=== PATIENT | male | born 1980 | race Caucasian/White ===

== ENCOUNTER 2020-07-13 05:19 | Emergency (ER) | payer SELFPAY ==
--- NOTE | 2020-07-13 05:30 | PC.NURSE ---
FAMILY MEMBER COMING TO REGISTRATION DESK AT SIGN IN STATING THAT THE PATIENT NEEDS TO SIT IN THE CAR TO RECLINE AND BE MORE COMFORTABLE. INFORMING PATIENT AND FAMILY THAT WAITING IN THE CAR WAS NOT POSSIBLE IN CASE SOMETHING HAPPENED TO THE PATIENT HE NEEDED TO BE ABLE TO BE VISUALIZED BY STAFF FOR PATIENTS WELL BEING SEEING HE WAS AN ER PATIENT. FAMILY MEMBER STATING THAT WAS UNACCEPTABLE. FAMILY MEMBER THEN CALLING THE NURSING INSURANCE CLAIMS CLERK, TELLING OTHER STAFF SO THAT NURSE DOES HER JOB . ASKING FOR A RECLINER IN THE WAITING ROOM. PATIENT AND FAMILY MEMBER BROUGHT TO A STRETCHER FOR PATIENT COMFORT. FAMILY MEMBER STATING THAT THEY ARE A FORMER EMPLOYEE OF THE [employer]. STATING THAT THIS ER CHARGE NURSE WAS THE REASON SHE LEFT THE HOSPITAL. THIS CHARGE NURSE NOT HAVING CONTACT WITH THIS FAMILY MEMBER BEFORE, NOT RECOGNIZING THEM.
--- NOTE | 2020-07-13 06:54 | PC.NURSE ---
PATIENT AND FAMILY MEMBER LEAVING FROM BED WITHOUT TREATMENT. NOT WANTING TO STAY FOR FURTHER CARE. PROVIDER MADE AWARE. SEEN WALKING OUT BY ENVIRONMENTAL AND REGISTRATION.
== END 2020-07-13 06:55 | disposition left against medical advice (07) ==
LOC: HO.ED 07:06
PROVIDERS: Emergency Provider Emergency Medicine
DX: M54.9 Dorsalgia, unspecified (principal)

== ENCOUNTER 2024-07-25 10:12 | Emergency (ER) | payer SELFPAY ==
--- NOTE | ~2024-07-25 | CT_ITS ---
EXAMINATION: CT ANGIOGRAM CHEST CLINICAL INFORMATION: Pleuritic chest pain, shortness of breath, left-sided pain, #fracture. COMPARISON: No prior CT. Chest x-ray dated earlier same day TECHNIQUE: Multiple axial images were obtained through the chest after the administration of 50 mL of Omnipaque 350 intravenous contrast. Extensive vascular post-processing including two-dimensional and three-dimensional reformatted images were created and reviewed on an independent workstation. This CT examination was performed using dose optimization techniques as appropriate, variously including the following: *Automated exposure control *Adjustment of mA and/or kV according to patient size (this includes techniques or standardized protocols for targeted exams where dose is matched to indication/reason for exam; i.e. extremities or head) *Use of iterative reconstruction technique FINDINGS: VASCULAR: There is no evidence of pulmonary embolus. Main pulmonary artery is normal in size. There is no evidence of acute aortic syndrome or aneurysm. The aorta is normal in appearance. The heart size is normal. There is no pericardial effusion. No evidence of right heart strain. No reflux of contrast into the IVC. LUNGS: Minimal changes of centrilobular emphysema. No consolidations or abnormal groundglass opacities. There is minimal linear atelectasis in the left lower lobe medially. There is mild thickening of the small airways suggesting mild chronic bronchitis. There is no abnormal or suspicious pulmonary nodule. MEDIASTINUM: Normal thyroid. No adenopathy. Central airways normal. Esophagus normal. CHEST WALL: Normal. IMAGED UPPER ABDOMEN: Normal. OSSEOUS STRUCTURES: Normal. No definite rib fractures seen. CT/CT angio chest PE protocol IMPRESSION: 1. No evidence of bony embolus. No evidence of acute aortic syndrome. 2. The lungs are clear. 3. Mild thickening of the small airways suggesting bronchitis. 4. No definite acute osseous abnormality or rib fracture seen. Electronically signed by: Jean Arredondo MD 07/25/2024 02:52 PM EDT
--- NOTE | ~2024-07-25 | XR_ITS ---
EXAMINATION: XR CHEST 1 VIEW HISTORY: CP COMPARISON: There are no prior studies for comparison. FINDINGS: A single PA portable view of the chest is submitted. The lungs are expanded and clear. There is no pleural effusion, pneumothorax, or pulmonary vascular congestion. The heart is normal in size. The bones are intact. XR/XR chest 1V IMPRESSION: Clear lungs. Electronically signed by: Blake Thurman MD 07/25/2024 11:05 AM EDT
--- NOTE | 2024-07-25 10:13 | ECG_ITS ---
Test Reason : chest pain Blood Pressure : */* mmHG Vent. Rate : 73 BPM Atrial Rate : 73 BPM P-R Int : 96 ms QRS Dur : 98 ms QT Int : 350 ms P-R-T Axes : 25 57 39 degrees QTcB Int : 385 ms Sinus rhythm with short [place] Minimal voltage criteria for LVH, may be normal variant ( Sokolow-Butler ) Borderline ECG No previous ECGs available Referred By: Generic ED Physician Electronically Signed By: MARJORIE NATH MD
[2024-07-25 10:25] VITALS: BP 119/74; PULSE 86; RESP 16; TEMP 36.9; O2SAT 96; BMI 23.8
[2024-07-25 10:49] LABS: MANUAL DIFF FLAG NO
[2024-07-25 10:52] LABS: Basophils Absolute Auto 0.1 X10*3/uL (0.0-0.2); Basophils Percent Auto 0.8 % (0-2); Eosinophils Absolute Auto 0.3 X10*3/uL (0.0-0.4); Eosinophils Percent Auto 3.7 % (0-4); Hematocrit 48.1 % (42.0-52.0); Hemoglobin 16.5 g/dl (14.0-18.0); Imm Gran Abs Auto 0.05 X10*3/uL (0.00-0.03); Imm Gran Pct Auto 0.5 % (0.0-0.4); Lymphocytes Absolute Auto 1.8 X10*3/uL (1.2-4.9); Mean Corpuscular HGB Conc 34.3 g/dl (31.0-36.0); Mean Corpuscular Hemoglobin 32.4 pg (27.0-33.0); Mean Corpuscular Volume 94.3 fL (80.0-98.0); Mean Platelet Volume 9.6 fL (9.4-12.4); Monocytes Percent Auto 11.1 % (2-11); Neutrophils Absolute Auto 5.9 x10*3/uL (2.0-8.3); Neutrophils Percent Auto 63.9 % (45-73); Platelet Count 225 X10*3/uL (160-400); White Blood Count 9.2 X10*3/uL (4.8-10.8)
--- NOTE | 2024-07-25 11:07 | ED_ITS ---
HPI - Chest Pain General Chief Complaint: Chest Pain Stated Complaint: chest pain Time Seen by Provider: 07/25/24 10:49 Source: patient, RN notes reviewed and old records reviewed Mode of arrival: ambulatory Limitations: no limitations History of Present Illness ED Provider: China Cosme PA-C HPI narrative: 43-year-old male with PMHx IVDU with heroin (remission since 2019), Lyme disease, chronic lower back pain, neuropathy presenting to the ED c/o left-sided chest pain x4 days s/p excessive alcohol, LSD, mushroom, cocaine use Monday night into Monday. Reports drugs were from trusted source , and thinks his symptoms are attributed to overdoing it . He describes the chest pain as non- radiating, sharp, constant, worse with inspiration and lying down, better with sitting down and leaning forward. Also reports cough/congestion, SOB at rest, with speaking / exertion, & bilateral LE swelling x2 days. 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 Denies recent trauma/falls. Reports cigarette smoking, subjective fever/chills last night. Denies headache, LOC/lightheadedness, abdominal pain, N/V/D, dysuria/hematuria, new numbness/tingling, new wounds/rashes. MD complaint: chest pain Onset (ago): day(s) Timing of current episode: constant Onset: during rest and during exertion Pain location: left chest Pain radiation: none Exacerbating factors: exertion, inspiration and supine Associated symptoms: fever and cough Related Data Allergies Allergy/AdvReac Type Severity Reaction Status Date / Time No Known Allergies Allergy Verified 07/25/24 10:25 Review of Systems 2 Review of Systems: Yes all other systems are reviewed and are negative Constitutional: Constitutional: Reports as per HPI [facility] Past Medical History Attestation statement: The following information was validated with the patient. Source: old records reviewed Social History Social History Advance Directives: No Advance Directives Information Provided: Yes Physical Exam 2 Vital Signs: Vital Signs: Last Vital Signs Temp 97.5 F 07/25/24 14:20 Pulse 68 07/25/24 14:20 Resp 14 07/25/24 14:20 BP 132/86 07/25/24 14:20 Pulse Ox 99 07/25/24 14:20 O2 Del Method Room Air 07/25/24 14:20 BMI result Body Mass Index 23.8 Const: General: cooperative, healthy appearing and no acute distress O rientation/consciousness: patient oriented x3 Limitations: no limitations HEENT: Head: Yes normal to inspection and Yes atraumatic Ears: hearing grossly normal bilaterally General nose exam: Normal external nose present Face and sinus: Yes normal facial exam Mouth: Normal oral and palatal mucosa present, oropharynx normal and moist mucous membranes Throat: Yes posterior oropharynx normal and Yes uvula midline Eyes: General: appearance normal, both eyes and all related structures EOM: EOMs intact bilaterally Neck: Neck: Yes normal visual inspection and Yes no meningeal signs Chest: Other: Healing small bruise noted to L anterior chest wall below nipple Mild ttp over L chest, no erythema/wounds/rashes or crepitus Chest palpation & inspection: normal inspection of the chest, no crepitus, tenderness and No rash Resp: Effort & Inspection: normal respiratory effort, able to speak in complete sentences, Actively coughing Quality: dry, no respiratory distress and symmetric chest movement Auscultation: clear to auscultation bilaterally, no rales, no rhonchi and no wheezes Cardio: Other: No pericardial friction rub or muffled heart sounds noted Rate: regular rate Heart sounds: S1 normal heart sound present and S2 normal heart sound present GI: Inspection: Yes normal to inspection Palpation (GI): Soft to palpation, nontender, no guarding and not rigid Skin: Other: Few small old wounds noted to b/l LE. Rashes: no rashes Wounds: no wounds Neuro: General: patient oriented x3, tone normal and no meningeal signs C ranial nerves: Yes CN's II-XII intact bilaterally Gait exam (Neuro): Normal gait present Extrem: General: Yes normal to inspection, Yes no calf tenderness, Yes normal gait and No pedal edema Course Course Course Narrative: - bedside cardiac ultrasound without appreciable effusion, LV dysfunction or RV strain -1421-- labs reassuring, d-dimer WNL, PE unlikely -AST/ALT mildly elevated > No priors to compare. Troponin negative. - tox screen positive for fentanyl, cocaine, THC XR chest 1V IMPRESSION: Clear lungs. > due to patient's continued symptoms, and difficulty lying flat will obtain CT for further eval. Patient states he needs to be discharged by 1500 to go to work. Agreeable to stay for scan however will likely leave prior to results >1453-- patient will sign out now AMA prior to CTA results and SARs results. He is A&O x3, competent to make his own decisions. I will follow up these results. 1500--CT angio chest PE protocol IMPRESSION: 1. No evidence of bony embolus. No evidence of acute aortic syndrome. 2. The lungs are clear. 3. Mild thickening of the small airways suggesting bronchitis. 4. No definite acute osseous abnormality or rib fracture seen. Medications Administered Discontinued Medications Generic Name Dose Route Start Last Admin Trade Name Freq PRN Reason Stop Dose Admin Iohexol 100 ml 07/25/24 14:36 07/25/24 14:36 Iohexol 350 Mg/Ml 100 Ml Infus..Btl IV 07/25/24 14:37 65 ml ONCE ONE Administration Ketorolac Tromethamine 30 mg 07/25/24 11:33 07/25/24 13:33 Ketorolac Tromethamine 30 Mg/Ml Vial IM 07/25/24 11:34 Not Given ONCE ONE Medical Decision Making Medical Decision Making [facility] Narrative: 43-year-old male with PMHx IVDU with heroin (remission since 2019), Lyme disease, chronic lower back pain, neuropathy presenting to the ED c/o left-sided chest pain x4 days s/p excessive alcohol, LSD, mushroom, cocaine use Monday night into Monday. On exam VSS, NAD, nontoxic appearing, PE with mild ttp over L chest wall. Lungs CTA. RRR. No pedal edema. Concern for ACS/unstable angina vs pericarditis vs ?myocarditis vs pericardial effusion vs MSK pain vs rib fracture/contusion vs PE. Lower suspicion for metabolic/electrolyte abnormality, pneumonia. Low suspicion for aortic dissection, pneumothroax, rhabdomyolysis, acute intoxication/withdrawal. Plan: labs, EKG, x-ray, CUTLER, POC cardiac U/S, SARs, reassess Differential Diagnosis Differential Diagnoses: The differential diagnosis associated with the presentation includes As above Admission/Observation Consideration of admission/observation: Escalation of care including admission/observation considered Lab Data [facility] Lab Attestation statement: I reviewed the patient's lab results. 07/25/24 10:39 07/25/24 10:39 Labs: Lab Results 07/25/24 07/25/24 07/25/24 Range/Units 10:39 12:19 12:56 WBC 9.2 (4.8-10.8) X10*3/uL RBC 5.10 (4.60-5.80) X10*6/uL Hgb 16.5 (14.0-18.0) g/dl Hct 48.1 (42.0-52.0) % MCV 94.3 (80.0-98.0) fL MCH 32.4 (27.0-33.0) pg MCHC 34.3 (31.0-36.0) g/dl RDW 12.0 (11.0-16.0) % Plt Count 225 (160-400) X10*3/uL MPV 9.6 (9.4-12.4) fL Immature Gran % (Auto) 0.5 H (0.0-0.4) % Neut % (Auto) 63.9 (45-73) % Lymph % (Auto) 20.0 (20-40) % [place] % (Auto) 11.1 H (2-11) % Eos % (Auto) 3.7 (0-4) % Baso % (Auto) 0.8 (0-2) % Lymph # (Auto) 1.8 (1.2-4.9) X10*3/uL [place] # (Auto) 1.0 (0.1-1.2) X10*3/uL Eos # (Auto) 0.3 (0.0-0.4) X10*3/uL Baso # (Auto) 0.1 (0.0-0.2) X10*3/uL Abs Immat Gran (auto) 0.05 H (0.00-0.03) X10*3/uL Absolute Neuts (auto) 5.9 (2.0-8.3) x10*3/uL Absolute Nucleated RBC 0.000 (0.0-0.012) X10*3/uL Nucleated RBC % (auto) 0.0 (0.0-0.2) /100WBC D-Dimer High Sensitivty < 150 NG/ML Sodium 142 (135-145) mmol/L Potassium 4.3 (3.3-5.1) mmol/L Chloride 107 (96-108) mmol/L Carbon Dioxide 29 (22-29) mmol/L Anion Gap 10 L (12-20) BUN 11 (9-16) mg/dL Creatinine 0.71 (0.5-1.4) mg/dL Estim Creat Clear Calc 135.6 Estimated GFR > 60 Random Glucose 81 (60-115) mg/dL Calcium 9.3 (8.4-10.2) mg/dL Magnesium 2.3 (1.6-2.6) mg/dL Total Bilirubin 0.3 (0.0-1.0) mg/dL AST 58 H (5-37) U/L ALT 107 H (0-40) U/L Alkaline Phosphatase 109 (39-117) U/L Troponin I High Sens < 2.7 (<3.5-35.0) ng/L Total Protein 7.8 (6.5-8.0) g/dL Albumin 4.3 (3.5-5.0) g/dL Urine Opiates Screen Not Detected (Not Detect) Ur Buprenorphine Scrn Not Detected (Not Detect) ng/mL Ur Oxycodone Screen Not Detected (Not Detect) ng/mL Urine Methadone Screen Not Detected (Not Detect) ng/mL Urine Fentanyl Screen POSITIVE H (Not Detect) Ur Barbiturates Screen Not Detected (Not Detect) Ur Phencyclidine Scrn Not Detected (Not Detect) Ur Amphetamines Screen Not Detected (Not Detect) U Benzodiazepines Scrn Not Detected (Not Detect) Urine Cocaine Screen POSITIVE H (Not Detect) U Marijuana (THC) Screen POSITIVE H (Not Detect) Independent Interpretation I performed an independent interpretation of an: EKG ( my interpretation EKG sinus rhythm with short [place] rate of 73. [place] interval 96. No previous to compare. No STEMI.), Plain X-Ray and CT Scan Radiology Impression Discussion of test interpretation with radiology: I have reviewed the radiologist's reading. External Record Review External record reviewed: Inpatient record, Office record, Outpatient record, Prior outpatient labs, Prior outpatient radiology, Primary care record and Outside ED record Tests considered The following testing was considered but not selected: As above Prescription Management I considered prescription management with: Pain Medication Chronic Conditions Patient?s care impacted by: Other Social Determinants Patient?s care significantly limited by Social Determinants of Health including: Other Social Determinant of Health Discharge Plan Discharge Clinical Impression: Chest pain Patient Disposition: Left Against Medical Advice Instructions: Chest Pain (DC) Additional Instructions: your blood work and imaging thus far is reassuring however your CAT scan is still pending. Your COVID/ flu /RSV testing is still pending You are signing out against medical advice, you are always welcome to return to the emergency department If her symptoms persist or worsen, pain becomes more constant, unbearable, you shortness breath, fever return to the emergency department Follow up with your doctor as well as Cardiology Referrals: [facility] [Provider Group] - 5 days Physician,None [Primary Care Provider] - 3 days Stand Alone Forms: Against Medical Advice Print Language: Syriac
[2024-07-25 11:18] LABS: Alanine Aminotransferase 107 U/L (0-40); Albumin Level 4.3 g/dL (3.5-5.0); Alkaline Phosphatase 109 U/L (39-117); Anion Gap 10 (12-20); Aspartate Amino Transferase 58 U/L (5-37); Bilirubin Total 0.3 mg/dL (0.0-1.0); Blood Urea Nitrogen 11 mg/dL (9-16); Calcium 9.3 mg/dL (8.4-10.2); Carbon Dioxide 29 mmol/L (22-29); Chloride 107 mmol/L (96-108); Creatinine Clr Calc Pharmacy 135.6; Estimated Glomerular Filt Rate > 60; Glucose Random 81 mg/dL (60-115); Magnesium 2.3 mg/dL (1.6-2.6); Potassium 4.3 mmol/L (3.3-5.1); Sodium 142 mmol/L (135-145); Total Protein 7.8 g/dL (6.5-8.0)
[2024-07-25 11:19] LABS: Troponin-I High Sensitivity < 2.7 ng/L (<3.5-35.0)
[2024-07-25 12:20] VITALS: BP 153/102; PULSE 75; RESP 14; TEMP 36.4; O2SAT 100
[2024-07-25 12:37] LABS: D Dimer High Sensitivity < 150 NG/ML
--- OUTSIDE RECORDS SUMMARY | 2024-07-25 13:04 | XMS_ITS | Clinical Summary ---
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 Role Phone Unavailable Primary Care Provider Unavailabl e Social History Tobacco Use Types Packs/Day Years Used Date Smoking Tobacco: Never Assessed Sex and Gender Information Value Date Recorded Sex Assigned at Not on file Legal Sex Male 7:21 AM EST Gender Identity Not on file Sexual Orientation Not on file Plan of Treatment Health Maintenance Due Date Last Done Comments DTaP,Tdap,and Td Vaccines (1 - Tdap) 1997 Hepatitis B Vaccines (1 of 3 - 19+ 3-dose series) 1997 COVID-19 Vaccine (2023-2 5 season) 2023 Influenza Vaccine (Season Ended) 2024 HIB Vaccines Aged Out No longer eligi ble based on patient's age to complete this topic HPV Vaccines Aged Out No longer eligi ble based on patient's age to complete this topic Hepatitis A Vaccines Aged Out No long er eligible based on patient's age to complete this topic IPV Vaccines Aged Out No longer eligi ble based on patient's age to complete this topic MMR Vaccines Aged Out No longer eligi ble based on patient's age to complete this topic Meningococcal ACWY Vaccine Aged Out N o longer eligible based on patient's age to complete this topic Meningococcal B Vaccine Aged Out No l onger eligible based on patient's age to complete this topic Pneumococcal Vaccine: Pediat rics (0 to 5 Years) and At-Risk Patients (6 to 64 Years) Aged Out No longer eligible b ased on patient's age to complete this topic RSV Immunization Patients Un en 20 months Aged Out No longer eligible b ased on patient's age to complete this topic Varicella Vaccines Aged Out No longer eligible based on patient's age to complete this topic
[2024-07-25 13:22] LABS: Amphetamine Screen Urine Not Detected (Not Detect); Barbiturates, Urine Not Detected (Not Detect); Benzodiazepines Screen Urine Not Detected (Not Detect); Buprenorphine Scr Not Detected (Not Detect); Cannabinoid Screen Urine POSITIVE (Not Detect); Cocaine Screen Urine POSITIVE (Not Detect); Fentanyl, urine POSITIVE (Not Detect); Methadone Screen, Urine Not Detected (Not Detect); Opiate Screen Urine Not Detected (Not Detect); Oxycodone Screen Urine Not Detected (Not Detect); Phencyclidine Screen Urine Not Detected (Not Detect)
[2024-07-25 14:20] VITALS: BP 132/86; PULSE 68; RESP 14; TEMP 36.4; O2SAT 99
[2024-07-25] MEDS: iohexoL 350 MG/ML 100 ML INFUS..BTL IV (14:36)
[2024-07-25 15:23] VITALS: BP 132/86; PULSE 68; RESP 14; TEMP 36.4; O2SAT 99
[2024-07-25 15:25] LABS: Influenza A PCR NEGATIVE (Negative); Influenza B PCR NEGATIVE (Negative); Resp Syncy Virus RNA Qual PCR NEGATIVE (Negative); SARS COV2 PCR INHOUSE NEGATIVE (Negative)
== END 2024-07-25 15:27 | disposition left against medical advice (07) ==
PROVIDERS: Physician Assistant; Emergency Provider Emergency Medicine
DX: R07.9 Chest pain, unspecified (principal); Z53.29 Procedure and treatment not carried out because of patient's decision for other reasons; Z03.818 Encounter for observation for suspected exposure to other biological agents ruled out
CPT/HCPCS: 0241U; 36415; 71045; 71275; 80053; 80307; 83735; 84484; 85025; 85379; 93005; 99284; Q9967

== ENCOUNTER → 2024-07-25 10:13 | Outpatient (BNV) | payer SELFPAY | PROVIDERS: Visit Provider Internal Medicine Cardiovascular Disease | DX: R07.9 Chest pain, unspecified (principal) | CPT/HCPCS: 93010 ==

== ENCOUNTER → 2024-07-25 10:30 | Outpatient (BNV) | payer SELFPAY | PROVIDERS: Visit Provider Radiology Diagnostic Radiology | DX: R07.9 Chest pain, unspecified (principal); R06.02 Shortness of breath | CPT/HCPCS: 71045; 71275 ==